=== PATIENT | male | born 1990 | race Caucasian/White ===

== ENCOUNTER → 2017-01-15 | Outpatient (CLI) | payer OTHER ==
--- NOTE | 2017-01-15 08:31 | DIAGNOSTIC IMAGING REPORT ---
ABDOMEN LIMITED (US) CLINICAL HISTORY: Left upper quadrant abdominal pain. COMPARISON STUDY: None. FINDINGS: Real-time sonographic imaging of the left upper quadrant was performed. The spleen measures 10.7 cm in length. The left kidney measures 11.4 cm in length. No splenic masses. No hydronephrosis. No sonographic abnormality within the anterior chest. IMPRESSION: No sonographic abnormality within the left upper quadrant. Electronically signed by: Jose Eduardo Lu M.D. 01/15/2017 8:29 AM Dictated Date/Time: 01/15/2017 8:28 AM
[2017-01-15 09:32] LABS: HEMATOCRIT 43.3 % (42-52); MEAN CELL VOLUME 87.5 fL (80-100); MEAN CORPUSCULAR HEMOGLOBIN 30.5 pg (25-34); MEAN CORPUSCULAR HGB CONC 34.9 g/dl (32-36); MEAN PLATELET VOLUME 11.1 fL (7.4-10.4); PLATELET COUNT 214 K/uL (130-400); RED BLOOD COUNT 4.95 M/uL (4.7-6.1); WHITE BLOOD COUNT 4.85 K/uL (4.8-10.8)
[2017-01-15 09:52] LABS: ALT/SGPT 39 U/L (12-78); AMYLASE 58 U/L (25-115); BLOOD UREA NITROGEN 11 mg/dl (7-18); CALCIUM 9.2 mg/dl (8.5-10.1); CARBON DIOXIDE 27 mmol/L (21-32); CHLORIDE 106 mmol/L (98-107); CREATININE 1.18 mg/dl (0.60-1.40); GLUCOSE 102 mg/dl (70-99); POTASSIUM 4.1 mmol/L (3.5-5.1); SODIUM 141 mmol/L (136-145)
[2017-01-15 09:55] LABS: ALKALINE PHOSPHATASE 60 U/L (45-117); AST/SGOT 55 U/L (15-37)
== END | disposition home or self-care (01) ==
LOC: C.ULTR 07:54
PROVIDERS: ATTEND Physician Assistant
DX: R10.12 Left upper quadrant pain (principal)

== ENCOUNTER → 2017-10-21 | Outpatient (CLI) | payer OTHER ==
--- NOTE | 2017-10-21 16:03 | DIAGNOSTIC IMAGING REPORT ---
MRI THE RIGHT KNEE NO CONTRAST CLINICAL HISTORY: Medial right knee pain. Recent injury. History of prior surgery. COMPARISON STUDY: Conventional radiographic study dated 10/11/2017 FINDINGS: There is a suprapatellar joint effusion. There is a popliteal cyst containing an 11 mm loose body The quadriceps and patellar tendons appear intact. The anterior posterior cruciate ligaments appear intact. There is a bone bruise involving the lateral femoral condyle and medial margin of the patella. This could be secondary to a transient patellar dislocation. The medial and lateral collateral ligaments appear intact. There is an equivocal cartilaginous defect involving the lateral femoral condyle. No tears of the lateral meniscus are visualized. There is truncation of the medial meniscus likely secondary to prior surgery. There is an equivocal remnant tear involving the posterior horn. IMPRESSION: 1. No evidence of cruciate or collateral ligament disruption 2. Joint effusion 3. Popliteal cyst containing an 11 mm loose body 4. Bone bruise involving the lateral femoral condyle and medial tibial facet. This could be secondary to a transient patellar dislocation 5. Truncation of the medial meniscus likely secondary to prior surgery. Equivocal remnant tear involving the posterior horn 6. Equivocal cartilaginous defect involving the lateral femoral condyle Electronically signed by: Juan Alas M.D. 10/21/2017 4:02 PM Dictated Date/Time: 10/21/2017 3:54 PM
== END | disposition home or self-care (01) ==
LOC: C.MRIBC 15:17
PROVIDERS: ATTEND Orthopaedic Surgery
DX: M71.21 Synovial cyst of popliteal space [Baker], right knee (principal); M23.41 Loose body in knee, right knee; M23.361 Other meniscus derangements, other lateral meniscus, right knee; T14.8XXA Other injury of unspecified body region, initial encounter; X58.XXXA Exposure to other specified factors, initial encounter